=== PATIENT | male | born 1990 | race Two or more races ===

== ENCOUNTER 2017-04-21 01:01 | Emergency (ER) | payer SELFPAY ==
[~2017-04-21] VITALS: Ht 177.8 cm; Wt 72.6 kg
[2017-04-21 01:15] VITALS: BP 95/63
[2017-04-21] MEDS ORDERED: Tetanus/Diptheria/Pertussis Vaccine 0.5ml Syr IM ONE (01:30)
[2017-04-21 02:07] VITALS: BP 95/63
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
--- NOTE | 2017-04-21 10:33 | Diagnostic Imaging Report ---
Indication: Pain Findings: 3 views of the right elbow were obtained. No acute fractures, malalignment, erosions or periostitis are identified. Bone mineralization is within normal limits. Soft tissues are unremarkable. Impression: Negative examination of the elbow.
--- NOTE | 2017-04-21 10:35 | Diagnostic Imaging Report ---
Indication: Pain 3 views of the right knee were obtained. Findings: No acute fracture, malalignment, or joint effusion are identified. Joint space is relatively well-maintained. Bone mineralization is within normal limits for age. Impression: Negative exam
== END 2017-04-21 02:07 ==
LOC: EMR 01:20
DX: S80.01XA Contusion of right knee, initial encounter (principal); S50.01XA Contusion of right elbow, initial encounter; X58.XXXA Exposure to other specified factors, initial encounter; Y92.89 Other specified places as the place of occurrence of the external cause; Z23 Encounter for immunization; Z88.0 Allergy status to penicillin
CPT/HCPCS: 90471; 90715; 99284